=== PATIENT | female | born 1990 | race Hispanic/Latino ===

== ENCOUNTER 2017-08-21 13:37 | Emergency (ER) | payer MEDICAID, OTHER | END 2017-08-21 15:03 | disposition home or self-care (01) | LOC: EDH 13:37 | DX: S29.012A Strain of muscle and tendon of back wall of thorax, initial encounter (principal); S01.01XA Laceration without foreign body of scalp, initial encounter; Z98.890 Other specified postprocedural states; Z72.0 Tobacco use; Y04.0XXA Assault by unarmed brawl or fight, initial encounter; Y93.89 Activity, other specified; Y92.098 Other place in other non-institutional residence as the place of occurrence of the external cause; Y99.8 Other external cause status ==

== ENCOUNTER 2017-10-04 22:47 | Emergency (ER) | payer SELFPAY ==
[2017-10-04] MEDS ORDERED: LIDOCAINE HCL 2% VISCOUS 15 ML UDCUP ONE (23:02)
[2017-10-04] MEDS ORDERED: ACETAMINOPHEN-CODEINE ELIXIR 5 ML UDCUP ONE (23:03)
== END 2017-10-04 23:17 | disposition home or self-care (01) ==
LOC: EDH 22:47
DX: K08.89 Other specified disorders of teeth and supporting structures (principal); Z72.0 Tobacco use

== ENCOUNTER 2022-12-25 22:19 | Emergency (ER) | payer MEDICAID ==
[~2022-12-25] VITALS: Ht 154.9 cm; Wt 85.3 kg
[2022-12-25 23:34] LABS: HEMATOCRIT 36.8 % (36-48); MEAN CORPUSCULAR HGB CONC 32.9 g/dL (32.0-36.0); MEAN CORPUSCULAR VOLUME 88.2 fL (79-99); PLATELET COUNT (AUTO) 280 K/uL (130-400); RED BLOOD CELL COUNT(AUTO) 4.17 MIL/uL (4.00-5.50); WHITE BLOOD COUNT (AUTO) 10.4 K/uL (4.8-10.8)
[2022-12-25 23:39] LABS: BASOPHILS % (AUTO) 0.3 % (0.0-5.0); EOSINOPHILS % (AUTO) 1.8 % (0.0-8.0); LYMPHOCYTES % (AUTO) 32.8 % (21.0-51.0); MONOCYTES % (AUTO) 7.3 % (3.0-13.0); NEUTROPHILS % (AUTO) 57.5 % (40.0-77.0)
[2022-12-25 23:44] LABS: CREATININE 0.9 mg/dL (0.5-1.5)
[2022-12-25 23:49] LABS: ALBUMIN 3.7 g/dL (3.5-5.0)
[2022-12-26] MEDS ORDERED: KETOROLAC 30MG VIAL (30MG/ML) IM STA (00:54)
[2022-12-26 02:33] VITALS: BP 132/74
== END 2022-12-26 02:35 | disposition home or self-care (01) ==
LOC: EDH 22:19
DX: S70.01XA Contusion of right hip, initial encounter (principal); S80.11XA Contusion of right lower leg, initial encounter; W01.0XXA Fall on same level from slipping, tripping and stumbling without subsequent striking against object, initial encounter; Y93.89 Activity, other specified; Y92.89 Other specified places as the place of occurrence of the external cause; Y99.8 Other external cause status
CPT/HCPCS: 99284; 80053; 84703; 85025; 81025; 36415; 72170; 73552; 96372; J1885

== ENCOUNTER 2024-03-06 15:22 | Emergency (ER) | payer BC, MEDICAID ==
[~2024-03-06] VITALS: Ht 165.1 cm; Wt 81.6 kg
[2024-03-06 17:28] LABS: RAPID GROUP A STREP negative (NEGATIVE)
[2024-03-06 17:38] LABS: COVID19 (SARS ANTIGEN RAPID) PRESUMPTIVE NEGATIVE (NEGATIVE); INFLUENZA TYPE A Negative For Type A (NEGATIVE); INFLUENZA TYPE B Negative For Type B (NEGATIVE)
[2024-03-06] MEDS ORDERED: AZIT1PAC7 PO (18:12)
[2024-03-06 18:14] VITALS: BP 126/58; PULSE 86; RESP 16; TEMP 98.2; O2SAT 98
== END 2024-03-06 18:18 | disposition home or self-care (01) ==
LOC: EDH 15:22
DX: J06.9 Acute upper respiratory infection, unspecified (principal); Z20.822 Contact with and (suspected) exposure to COVID-19; Z79.899 Other long term (current) drug therapy
CPT/HCPCS: 71045; 87426; 87804; 87880